=== PATIENT | male | born 1940 | race Caucasian/White ===

== ENCOUNTER 2018-07-14 02:51 | Observation (INO) | payer OTHER ==
[~2018-07-14] VITALS: Ht 175.3 cm; Wt 104.3 kg
[2018-07-14 03:21] LABS: BASOPHILS % (AUTO) 1.3 % (0.0-5.0); EOSINOPHILS % (AUTO) 2.5 % (0.0-8.0); HEMATOCRIT 43.3 % (42-54); LYMPHOCYTES % (AUTO) 37.7 % (21.0-51.0); MEAN CORPUSCULAR HEMOGLOBIN 30.5 pg (27.0-33.0); MEAN CORPUSCULAR HGB CONC 34.2 g/dL (32.0-36.0); MEAN CORPUSCULAR VOLUME 89.1 fL (79-99); MONOCYTES % (AUTO) 9.2 % (3.0-13.0); NEUTROPHILS % (AUTO) 49.3 % (40.0-77.0); NUCLEATED RED BLOOD CELLS 0.1 % (0.0-0.19); PLATELET COUNT (AUTO) 173 K/uL (130-400); RED BLOOD CELL COUNT(AUTO) 4.86 MIL/uL (4.50-6.20); RED CELL DISTRIBUTION WIDTH 13.3 % (11.0-15.5); WHITE BLOOD COUNT (AUTO) 6.1 K/uL (4.8-10.8)
[2018-07-14 03:30] LABS: CREATININE 1.3 mg/dL (0.5-1.5); POTASSIUM 4.2 mmol/L (3.5-5.1)
[2018-07-14 03:36] LABS: ALBUMIN 3.6 g/dL (3.5-5.0); BILIRUBIN,TOTAL 0.5 mg/dL (0.2-1.0)
[2018-07-14 03:46] LABS: INR 0.98 (0.85-1.15); PARTIAL THROMBOPLASTIN TIME 27.2 SEC (26.3-35.5); PROTHROMBIN TIME 10.3 SEC (9.6-11.6)
[2018-07-14] MEDS ORDERED: HYDROCODONE/ACETAMINOPHEN 5/325 MG TAB PO PRN (06:30)
[2018-07-14] MEDS ORDERED: ONDANSETRON HCL 4 MG/2 ML VIAL IVP PRN (06:30)
[2018-07-14] MEDS ORDERED: MORPHINE SULFATE 2 MG/ML 1ML SYG IVP PRN (06:30)
[2018-07-14] MEDS: SODIUM CHLORIDE 0.9% 1000ML 1,000 ML IV SCH ×2 (06:30→19:26)
[2018-07-14] MEDS ORDERED: LABETALOL HCL 5 MG/ML 20ML VIAL IV PRN (06:30)
[2018-07-14] MEDS ORDERED: ACETAMINOPHEN 325 MG TAB PO PRN (06:30)
[2018-07-14 07:55] VITALS: BP 153/86
[2018-07-14] MEDS ORDERED: LISI40TA4 PO (10:08)
[2018-07-14] MEDS ORDERED: ASPI-1012 PO (10:08)
[2018-07-14] MEDS ORDERED: CEPH500C2 PO (10:08)
[2018-07-14] MEDS: ATORVASTATIN CALCIUM 40 MG TABLET PO SCH (10:20)
[2018-07-14] MEDS: ASPIRIN 325 MG TABLET PO SCH (10:20)
[2018-07-14] MEDS: ENOXAPARIN SODIUM 40 MG/0.4 ML SYRINGE SQ SCH (10:20)
[2018-07-14] MEDS: PANTOPRAZOLE SODIUM 40 MG TABLET.DR PO SCH (10:20)
[2018-07-14 12:06] VITALS: BP 132/82
[2018-07-14 16:19] VITALS: BP 134/78
[2018-07-14 19:00] VITALS: BP 134/98
[2018-07-14 23:00] VITALS: BP 122/55
[2018-07-15 03:00] VITALS: BP 116/83
[2018-07-15 08:00] VITALS: BP 132/60
[2018-07-15] MEDS: SODIUM CHLORIDE 0.9% 1000ML 1,000 ML IV SCH ×2 (09:10→11:38)
[2018-07-15] MEDS: PANTOPRAZOLE SODIUM 40 MG TABLET.DR PO SCH ×2 (10:39→10:52)
[2018-07-15] MEDS: ATORVASTATIN CALCIUM 40 MG TABLET PO SCH ×2 (10:39→10:51)
[2018-07-15] MEDS: ASPIRIN 325 MG TABLET PO SCH ×2 (10:40→10:52)
[2018-07-15] MEDS: ENOXAPARIN SODIUM 40 MG/0.4 ML SYRINGE SQ SCH ×2 (10:40→10:52)
[2018-07-15 11:37] VITALS: BP 152/89
[2018-07-15 14:23] LABS: CHOLESTEROL 188 mg/dL (<200); HDL CHOLESTEROL 46 mg/dL (29-71); LDL DIRECT 136 mg/dL (0-99); TRIGLYCERIDES 105 mg/dL (30-200)
[2018-07-15 14:32] LABS: MAGNESIUM 2.1 mg/dL (1.80-2.40); PHOSPHORUS 3.2 mg/dL (2.5-4.9); THYROID STIMULATING HORMONE 4.13 uIU/mL (0.36-3.74)
[2018-07-15 16:00] VITALS: BP 125/68
[2018-07-15 19:00] VITALS: BP 186/81
[2018-07-15 22:20] VITALS: BP 139/98
[2018-07-16] VITALS: BP 123/60
[2018-07-16 04:00] VITALS: BP 123/67
[2018-07-16 05:04] LABS: BASOPHILS % (AUTO) 0.9 % (0.0-5.0); EOSINOPHILS % (AUTO) 2.6 % (0.0-8.0); HEMATOCRIT 42.1 % (42-54); LYMPHOCYTES % (AUTO) 30.5 % (21.0-51.0); MEAN CORPUSCULAR HEMOGLOBIN 30.6 pg (27.0-33.0); MEAN CORPUSCULAR VOLUME 90.1 fL (79-99); MONOCYTES % (AUTO) 9.3 % (3.0-13.0); NEUTROPHILS % (AUTO) 56.7 % (40.0-77.0); PLATELET COUNT (AUTO) 172 K/uL (130-400); RED BLOOD CELL COUNT(AUTO) 4.67 MIL/uL (4.50-6.20); RED CELL DISTRIBUTION WIDTH 13.3 % (11.0-15.5); WHITE BLOOD COUNT (AUTO) 5.7 K/uL (4.8-10.8)
[2018-07-16 05:26] LABS: HEMOGLOBIN A1C 5.5 % (4.0-6.0)
[2018-07-16 05:48] LABS: ALBUMIN 3.2 g/dL (3.5-5.0); BILIRUBIN,TOTAL 0.4 mg/dL (0.2-1.0); CREATININE 1.3 mg/dL (0.5-1.5); MAGNESIUM 1.9 mg/dL (1.80-2.40); PHOSPHORUS 3.2 mg/dL (2.5-4.9); POTASSIUM 4.4 mmol/L (3.5-5.1); THYROID STIMULATING HORMONE 5.97 uIU/mL (0.36-3.74); TOTAL PROTEIN, SERUM 6.3 g/dL (6.0-8.3)
[2018-07-16] MEDS ORDERED: LEVOTHYROXINE 25 MCG TABLET PO SCH (06:30)
[2018-07-16 07:00] VITALS: BP 175/87
[2018-07-16] MEDS ORDERED: LISINOPRIL 5 MG TABLET PO SCH ×2 (09:00)
[2018-07-16] MEDS: PANTOPRAZOLE SODIUM 40 MG TABLET.DR PO SCH (10:36)
[2018-07-16] MEDS: ATORVASTATIN CALCIUM 40 MG TABLET PO SCH (10:36)
[2018-07-16] MEDS: ASPIRIN 325 MG TABLET PO SCH (10:36)
[2018-07-16 11:00] VITALS: BP 132/68
[2018-07-16] MEDS ORDERED: CLOPIDOGREL BISULFATE 75 MG TAB PO SCH (11:00)
[2018-07-17] MEDS ORDERED: ASPIRIN 81MG TAB.CHEW PO SCH (09:00)
== END 2018-07-16 14:27 | disposition home or self-care (01) ==
LOC: EDH 02:51 → OBSVTOIN 05:31 → EDHIP 05:31 → INTOOBSV 05:31 → 3CH 07:50
PROVIDERS: ADMIT Internal Medicine Critical Care Medicine; ATTEND Internal Medicine Critical Care Medicine
DX: R42 Dizziness and giddiness (principal); G45.9 Transient cerebral ischemic attack, unspecified; H66.92 Otitis media, unspecified, left ear; E78.5 Hyperlipidemia, unspecified; H53.2 Diplopia; I10 Essential (primary) hypertension; I49.3 Ventricular premature depolarization; Z87.891 Personal history of nicotine dependence
CPT/HCPCS: 36415 ×3; 70450; 70544; 70547; 70551; 80053 ×2; 80061 ×2; 83036; 83735 ×2; 84100 ×2; 84439; 84443 ×2; 84480; 85025 ×2; 85610; 85730; 93005; 96360; 96361 ×3; 96372 ×2; 99285; G0378 ×57; J1650 ×2; J3490

== ENCOUNTER 2019-06-14 16:31 | Inpatient (IN) | payer OTHER ==
[~2019-06-14] VITALS: Ht 175.3 cm; Wt 111.2 kg
[~2019-06-14 16:31] MED LIST: LISI40TA4 PO
[2019-06-14] MEDS ORDERED: ASPIRIN 81MG TAB.CHEW ONE (16:56)
[2019-06-14] MEDS ORDERED: SODIUM CHLORIDE 0.9% 500ML 500 ML IV ONE (16:57)
[2019-06-14 17:09] LABS: BASOPHILS % (AUTO) 1.3 % (0.0-5.0); HEMATOCRIT 45.1 % (42-54); LYMPHOCYTES % (AUTO) 18.5 % (21.0-51.0); MEAN CORPUSCULAR HEMOGLOBIN 30.6 pg (27.0-33.0); MEAN CORPUSCULAR HGB CONC 34.5 g/dL (32.0-36.0); MEAN CORPUSCULAR VOLUME 88.5 fL (79-99); MONOCYTES % (AUTO) 10.3 % (3.0-13.0); NEUTROPHILS % (AUTO) 68.9 % (40.0-77.0); PLATELET COUNT (AUTO) 198 K/uL (130-400); RED BLOOD CELL COUNT(AUTO) 5.09 MIL/uL (4.50-6.20); RED CELL DISTRIBUTION WIDTH 13.1 % (11.0-15.5); WHITE BLOOD COUNT (AUTO) 9.4 K/uL (4.8-10.8)
[2019-06-14 17:20] LABS: CREATININE 1.2 mg/dL (0.5-1.5); POTASSIUM 4.6 mmol/L (3.5-5.1)
[2019-06-14 17:25] LABS: ALBUMIN 3.6 g/dL (3.5-5.0); BILIRUBIN,TOTAL 0.5 mg/dL (0.2-1.0); TOTAL PROTEIN, SERUM 6.8 g/dL (6.0-8.3)
[2019-06-14 17:29] LABS: B-TYPE NATRIURETIC PEPTIDE 61 pg/mL (0-100)
[2019-06-14] MEDS: NITROGLYCERIN 1GM/1 INCH PACKET TD SCH (18:00)
[2019-06-14 19:29] LABS: APPEARANCE,URINE Clear (CLEAR); BILIRUBIN,URINE Negative (NEGATIVE); COLOR,URINE Yellow (YELLOW); GLUCOSE, URINE (UA) Negative (NEGATIVE); KETONES,URINE Trace mg/dL (NEGATIVE); LEUKOCYTE ESTERASE ,URINE Moderate (NEGATIVE); NITRATE,URINE Negative (NEGATIVE); OCCULT BLOOD,URINE Negative (NEGATIVE); PH,URINE 6.5 (5.0-8.0); PROTEIN,URINE Negative (NEGATIVE); UROBILINOGEN,URINE 0.2 mg/dL (0.2-1.0)
[2019-06-14 19:35] LABS: BACTERIA,URINE Few /HPF (None Seen); RBC,URINE 0-1 /HPF (0-1)
[2019-06-14 19:36] LABS: MUCUS,URINE None Seen LPF (None Seen); SQUAMOUS EPITHELIAL CELL,UR 0-2 /HPF (0-2)
[2019-06-14] MEDS ORDERED: ADENOSINE 3 MG/ML 2ML VIAL IV ONE (20:02)
[2019-06-15] MEDS: NITROGLYCERIN 1GM/1 INCH PACKET TD SCH ×2 (06:00)
[2019-06-15] MEDS ORDERED: LISI-617 PO (08:14)
[2019-06-15] MEDS ORDERED: ATOR10 PO (08:14)
[2019-06-15] MEDS ORDERED: CLOP75TA32 PO (08:14)
[2019-06-15 08:57] VITALS: BP 138/70
[2019-06-15] MEDS: ENOXAPARIN SODIUM 40 MG/0.4 ML SYRINGE SQ SCH (09:14)
[2019-06-15 12:00] VITALS: BP 136/82
--- NOTE | 2019-06-15 13:08 | NUR ---
cm note met with patient resides at home with spouse, states is independent with ambulation and adls, no DME. no services at home. and dc plan is back to same home setting feels safe to return back home at dc. no dc needs. Addendum: 06/15/19 at 1310 by JOEL MARIE CM Amended: Links added.
[2019-06-15 15:17] VITALS: BP 142/89
[2019-06-15] MEDS ORDERED: IOHEXOL-350 75 ML VIAL IV ONE (15:29)
[2019-06-15] MEDS: LISINOPRIL 5 MG TABLET PO SCH (16:31)
[2019-06-15] MEDS: CLOPIDOGREL BISULFATE 75 MG TAB PO SCH (16:32)
--- NOTE | 2019-06-15 19:10 | NUR ---
Received bedside report ,pt is for stress test tomorrow.Pt informed regrding NPO post midnight.
[2019-06-15 19:56] VITALS: BP 140/86
[2019-06-15] MEDS: ATORVASTATIN CALCIUM 20 MG TABLET PO SCH (20:45)
[2019-06-15] MEDS: METOPROLOL TARTRATE 50 MG TAB PO SCH (20:45)
[2019-06-15 23:23] VITALS: BP 138/86
--- NOTE | 2019-06-16 | NUR ---
Pt. kept NPO at this time and pt demonstrated uderstanding.
[2019-06-16 03:33] VITALS: BP 107/64
[2019-06-16 05:21] LABS: HEMATOCRIT 40.8 % (42-54); MEAN CORPUSCULAR HEMOGLOBIN 30.9 pg (27.0-33.0); MEAN CORPUSCULAR HGB CONC 34.8 g/dL (32.0-36.0); PLATELET COUNT (AUTO) 199 K/uL (130-400); RED BLOOD CELL COUNT(AUTO) 4.59 MIL/uL (4.50-6.20); RED CELL DISTRIBUTION WIDTH 13.2 % (11.0-15.5)
[2019-06-16 05:32] LABS: CREATININE 1.2 mg/dL (0.5-1.5); MAGNESIUM 1.8 mg/dL (1.80-2.40); POTASSIUM 4.1 mmol/L (3.5-5.1)
[2019-06-16 07:00] VITALS: BP 136/93
[2019-06-16] MEDS ORDERED: REGADENOSON 0.4 MG/5 ML PF SYG IVP SCH (07:30)
[2019-06-16] MEDS: CLOPIDOGREL BISULFATE 75 MG TAB PO SCH (10:27)
[2019-06-16] MEDS: METOPROLOL TARTRATE 50 MG TAB PO SCH ×2 (10:27→20:57)
[2019-06-16] MEDS: LISINOPRIL 5 MG TABLET PO SCH (10:27)
[2019-06-16] MEDS: ENOXAPARIN SODIUM 40 MG/0.4 ML SYRINGE SQ SCH (10:28)
[2019-06-16 11:20] VITALS: BP 136/83
[2019-06-16 16:00] VITALS: BP 99/58
[2019-06-16 20:21] VITALS: BP 112/75
[2019-06-16] MEDS: ATORVASTATIN CALCIUM 20 MG TABLET PO SCH (20:55)
--- NOTE | 2019-06-16 21:00 | NUR ---
NETTE POLANCO NP called back and notified of pt.s status.He said to wait for dc order and prescription for metoprolol in am,pt aware.
[2019-06-16] MEDS ORDERED: METO50 PO (22:13)
[2019-06-16] MEDS ORDERED: ACETAMINOPHEN 325 MG TAB PO PRN (22:30)
[2019-06-16] MEDS ORDERED: TRAMADOL HCL 50 MG TABLET PO PRN (22:30)
[2019-06-16] MEDS ORDERED: POTASSIUM CHLORIDE 10% ELIXIR 20 MEQ/15 ML UDCUP PO PRN (22:30)
[2019-06-16] MEDS ORDERED: POTASSIUM CHLORIDE 20 MEQ ERTAB PO PRN (22:30)
[2019-06-16] MEDS ORDERED: TEMAZEPAM 15 MG CAPSULE PO PRN (22:30)
[2019-06-16] MEDS ORDERED: MAGNESIUM HYDROXIDE 30 ML/UDCUP PO PRN (22:30)
[2019-06-16] MEDS ORDERED: ONDANSETRON HCL 4 MG/2 ML VIAL IVP PRN (22:30)
[2019-06-16] MEDS ORDERED: MAGNESIUM SULFATE 1 GM in SODIUM CHLORIDE 0.9% 50 ML IV PRN (22:30)
[2019-06-16] MEDS ORDERED: POTASSIUM CHLORIDE 20MEQ/100ML 100 ML IV PRN (22:30)
[2019-06-16] MEDS ORDERED: LIDOCAINE HCL-MPF 1% 2ML VIAL IV PRN (22:30)
--- NOTE | 2019-06-17 00:35 | NUR ---
DID'NT WANT TO BE BOTHERED Pt sleepin,did'nt want to be bothered for Vital signs monitoring.
[2019-06-17 01:10] VITALS: BP 115/68
[2019-06-17 03:18] VITALS: BP 121/75
[2019-06-17 07:00] VITALS: BP 126/67
[2019-06-17] MEDS ORDERED: FAMOTIDINE 20MG TAB 20 MG TAB PO SCH (09:00)
[2019-06-17] MEDS: ENOXAPARIN SODIUM 40 MG/0.4 ML SYRINGE SQ SCH (09:00)
[2019-06-17] MEDS: METOPROLOL TARTRATE 50 MG TAB PO SCH (09:29)
[2019-06-17] MEDS: CLOPIDOGREL BISULFATE 75 MG TAB PO SCH (09:29)
[2019-06-17] MEDS: LISINOPRIL 5 MG TABLET PO SCH (09:29)
[2019-06-17 11:00] VITALS: BP 104/65
== END 2019-06-17 12:25 | disposition home or self-care (01) | DRG 310 ==
LOC: EDH 16:31 → OBSVTOIN 18:09 → EDHIP 18:09 → 3BH 20:14 → EDHIP 21:01 → 2DH 06-15 07:35
PROVIDERS: ADMIT Internal Medicine; ATTEND Internal Medicine
DX: I47.1 Supraventricular tachycardia (principal); E66.9 Obesity, unspecified; E78.5 Hyperlipidemia, unspecified; I10 Essential (primary) hypertension; I35.1 Nonrheumatic aortic (valve) insufficiency; Z79.02 Long term (current) use of antithrombotics/antiplatelets; Z86.73 Personal history of transient ischemic attack (TIA), and cerebral infarction without residual deficits; Z68.36 Body mass index [BMI] 36.0-36.9, adult
CPT/HCPCS: 36415; 71045; 71275; 78452; 80048; 80053; 81001; 83690; 83735; 83880; 84132; 84484; 85025; 85027; 93005; 93017; 93306; 93970; 96374; A9500; G0378; J0153; J1650; J2785; J7040; Q9967

== ENCOUNTER 2020-05-28 01:58 | Inpatient (IN) | payer OTHER ==
[~2020-05-28] VITALS: Ht 175.3 cm; Wt 97.8 kg
[~2020-05-28 01:58] MED LIST changes: +ATOR10 PO; +CLOP75TA32 PO; +LISI-617 PO; -LISI40TA4 PO
[2020-05-28] MEDS ORDERED: LACTATED RINGERS 1000ML 1,000 ML IV ONE (02:02)
[2020-05-28] MEDS ORDERED: CEFTRIAXONE SODIUM 2 GM VIAL ONE (02:02)
[2020-05-28] MEDS ORDERED: ACETAMINOPHEN 325 MG TAB ONE (02:02)
[2020-05-28 02:58] LABS: BASOPHILS % (AUTO) 0.3 % (0.0-5.0); EOSINOPHILS % (AUTO) 0.8 % (0.0-8.0); HEMATOCRIT 40.2 % (42-54); LYMPHOCYTES % (AUTO) 6.7 % (21.0-51.0); MEAN CORPUSCULAR HEMOGLOBIN 29.7 pg (27.0-33.0); MEAN CORPUSCULAR HGB CONC 35.1 g/dL (32.0-36.0); MEAN CORPUSCULAR VOLUME 84.6 fL (79-99); MONOCYTES % (AUTO) 4.4 % (3.0-13.0); NEUTROPHILS % (AUTO) 87.3 % (40.0-77.0); PLATELET COUNT (AUTO) 213 K/uL (130-400); RED BLOOD CELL COUNT(AUTO) 4.75 MIL/uL (4.50-6.20); WHITE BLOOD COUNT (AUTO) 6.1 K/uL (4.8-10.8)
[2020-05-28 03:08] LABS: ABG BASE EXCESS 0.7 mmol/L (-2.0-3.0); ABG HCO3 25.1 mmol/L (21.0-28.0); ABG OXYGEN SATURATION 93.4 % (95.0-99.0); ABG PCO2 39 mmHg (35-48)
[2020-05-28 03:14] LABS: CARBON DIOXIDE 30 mmol/L (21-32); CHLORIDE 97 mmol/L (101-111); GLOMERULAR FILTR. RATE CALC 77 mL/min (>60); GLUCOSE,RANDOM 141 mg/dL (70-105); POTASSIUM 3.7 mmol/L (3.5-5.1); SODIUM SERUM 131 mmol/L (136-145); UREA NITROGEN, BLOOD 16 mg/dL (7-18)
[2020-05-28 03:19] LABS: INR 1.54 (0.85-1.15); PARTIAL THROMBOPLASTIN TIME 56.5 SEC (26.3-35.5); PROTHROMBIN TIME 16.4 SEC (9.6-11.6)
[2020-05-28] MEDS ORDERED: ZINC SULFATE 220 CAPSULE ONE (03:22)
[2020-05-28] MEDS ORDERED: AZITHROMYCIN 500MG+NS 250ML 250 ML IV ONE (03:22)
[2020-05-28] MEDS ORDERED: DEXAMETHASONE SOD PHOSPHATE 10MG/ML 1ML VIAL ONE (03:22)
[2020-05-28] MEDS ORDERED: CEFTRIAXONE SODIUM 1 GM ONE (03:23)
[2020-05-28 03:38] LABS: ALANINE AMINOTRANSFERASE 71 U/L (12-78); ALBUMIN 2.5 g/dL (3.5-5.0); ASPARTATE AMINOTRANSFERASE 139 U/L (10-37); BILIRUBIN,TOTAL 0.7 mg/dL (0.2-1.0); MYOGLOBIN 267 ng/mL (10-92); TOTAL PROTEIN, SERUM 6.7 g/dL (6.0-8.3); TROPONIN I < 0.04 ng/mL (0.00-0.06)
[2020-05-28 03:47] LABS: CREATINE KINASE, TOTAL 1921 U/L (21-232)
[2020-05-28] MEDS ORDERED: IOHEXOL 350 MG/ML 100ML INFUS..BTL IV ONE (03:51)
[2020-05-28 04:46] LABS: APPEARANCE,URINE Clear (CLEAR); BILIRUBIN,URINE Negative (NEGATIVE); COLOR,URINE Yellow (YELLOW); GLUCOSE, URINE (UA) Negative (NEGATIVE); KETONES,URINE 15 mg/dL (NEGATIVE); LEUKOCYTE ESTERASE ,URINE Negative (NEGATIVE); NITRATE,URINE Negative (NEGATIVE); OCCULT BLOOD,URINE Small (NEGATIVE); PROTEIN,URINE POS 2+ mg/dL (NEGATIVE)
[2020-05-28 05:09] LABS: BACTERIA,URINE None Seen /HPF (None Seen); RBC,URINE 0-1 /HPF (0-1); SQUAMOUS EPITHELIAL CELL,UR Moderate /HPF (0-2); WBC,URINE 0-1 /HPF (0-1)
[2020-05-28 06:15] VITALS: BP 130/83
[2020-05-28] MEDS ORDERED: ONDANSETRON HCL 4 MG/2 ML VIAL IVP PRN (06:15)
[2020-05-28] MEDS ORDERED: AZITHROMYCIN 500MG+NS 250ML 250 ML IV SCH (06:15)
[2020-05-28] MEDS ORDERED: ONDANSETRON HCL 4 MG/2 ML VIAL IV PRN (06:15)
[2020-05-28] MEDS ORDERED: LACTULOSE 20 GM/30 ML UDCUP PO PRN (06:15)
[2020-05-28] MEDS ORDERED: ACETAMINOPHEN 325 MG TAB PO PRN (06:15)
[2020-05-28] MEDS ORDERED: CEFTRIAXONE SODIUM 1 GM IVP SCH (06:15)
[2020-05-28 07:11] LABS: HEMOGLOBIN A1C 5.9 % (4.0-6.0)
[2020-05-28] MEDS ORDERED: ERGOCALCIFEROL (VITAMIN D2) 50,000 UNIT CAPSULE PO SCH (07:34)
[2020-05-28] MEDS ORDERED: PHARMACY COMMUNICATION MISC SCH (07:45)
[2020-05-28 08:00] VITALS: BP 113/70
[2020-05-28] MEDS: ASCORBIC ACID 500 MG TAB PO SCH (09:00)
[2020-05-28] MEDS ORDERED: FAMOTIDINE 20MG TAB 20 MG TAB PO SCH (09:00)
[2020-05-28] MEDS: DEXAMETHASONE 4 MG TAB PO SCH (09:00)
[2020-05-28] MEDS: FAMOTIDINE 20MG TAB 20 MG TAB PO SCH ×2 (09:00→20:42)
[2020-05-28] MEDS: ZINC SULFATE 220 CAPSULE PO SCH (09:00)
[2020-05-28] MEDS: ENOXAPARIN SODIUM 100 MG/1 ML SQ SCH ×2 (09:01→20:46)
[2020-05-28 11:26] VITALS: BP 137/84
[2020-05-28] MEDS: LACTATED RINGERS 1000ML 1,000 ML IV SCH ×2 (11:59→20:48)
[2020-05-28] MEDS ORDERED: METO25TA6 PO (12:33)
[2020-05-28] MEDS ORDERED: OXCA150T27 PO (12:33)
[2020-05-28] MEDS ORDERED: PHARMACY COMMUNICATION***REMDESIVIR ORDER MISC SCH (13:45)
--- NOTE | 2020-05-28 14:11 | NUR ---
DCP CM spoke to pt discussed dc plans. Pt is independent prior to admission, lives at home with spouse and 23 grandchildren. Pt has a walker he hardly uses, and shower chair. Denies any other equipments/services. Feels safe to go back home, spouse and daughter able to assist with transportation and needs as necessary. Pt agreeable for any [facility] DME/HH/SNF if necessary, telephone consent obtained ABHIJIT, witnessed by Tabitha BHAKTA. Pt however verbalized as much as possible he prefers to go home and does not want to go to [facility]. DC plan to home vs w/HH or SNF. CM to continue to follow up. Addendum: 05/28/20 at 1415 by BRIANNA BAEZA LVN CM Amended: Links added.
[2020-05-28 16:00] VITALS: BP 125/72
[2020-05-28 19:49] VITALS: BP 128/80
[2020-05-28] MEDS: OXCARBAZEPINE 300 MG TAB PO SCH (20:43)
[2020-05-28] MEDS: ATORVASTATIN CALCIUM 20 MG TABLET PO SCH (20:44)
[2020-05-28] MEDS: CEFTRIAXONE SODIUM 1 GM IVP SCH (20:44)
[2020-05-28] MEDS: METOPROLOL TARTRATE 25 MG TAB PO SCH (20:45)
[2020-05-28 23:31] VITALS: BP 129/76
--- NOTE | 2020-05-29 03:00 | NUR ---
One unit of FFP completed with pt in stable condition. No s/s of transfusion reaction noted. Patient continued on 4L NC with POX between 92-97%. No acute respiratory distress at this time. Following POC.
[2020-05-29 04:00] VITALS: BP 128/81
[2020-05-29 07:10] LABS: BASOPHILS % (AUTO) 0.1 % (0.0-5.0); HEMATOCRIT 36.9 % (42-54); LYMPHOCYTES % (AUTO) 6.9 % (21.0-51.0); MEAN CORPUSCULAR HEMOGLOBIN 29.7 pg (27.0-33.0); MEAN CORPUSCULAR HGB CONC 34.4 g/dL (32.0-36.0); MEAN CORPUSCULAR VOLUME 86.2 fL (79-99); MONOCYTES % (AUTO) 4.5 % (3.0-13.0); NEUTROPHILS % (AUTO) 87.8 % (40.0-77.0); PLATELET COUNT (AUTO) 239 K/uL (130-400); RED BLOOD CELL COUNT(AUTO) 4.28 MIL/uL (4.50-6.20); RED CELL DISTRIBUTION WIDTH 12.2 % (11.0-15.5); WHITE BLOOD COUNT (AUTO) 7.6 K/uL (4.8-10.8)
[2020-05-29] MEDS: LACTATED RINGERS 1000ML 1,000 ML IV SCH ×2 (07:15→17:15)
[2020-05-29 07:35] LABS: ALBUMIN 2.2 g/dL (3.5-5.0); BILIRUBIN,TOTAL 0.4 mg/dL (0.2-1.0); CREATININE 0.9 mg/dL (0.5-1.5); CRP QUANTITATIVE 53.7 mg/L (0.00-9.0); TOTAL PROTEIN, SERUM 6.1 g/dL (6.0-8.3)
[2020-05-29 08:00] VITALS: BP 130/79
[2020-05-29] MEDS ORDERED: COMPOUND IV REFRIGERATED 1 EACH IVSOLN MISC PRN (08:00)
[2020-05-29] MEDS ORDERED: REMDESIVIR (EUA) 520 200 MG in SODIUM CHLORIDE 0.9% 250 ML IV SCH (09:00)
[2020-05-29] MEDS: AZITHROMYCIN 500MG+NS 250ML 250 ML IV SCH (09:26)
[2020-05-29] MEDS: CEFTRIAXONE SODIUM 1 GM IVP SCH ×2 (09:26→20:34)
[2020-05-29] MEDS: CLOPIDOGREL BISULFATE 75 MG TAB PO SCH (09:27)
[2020-05-29] MEDS: METOPROLOL TARTRATE 25 MG TAB PO SCH ×2 (09:27→20:32)
[2020-05-29] MEDS: ZINC SULFATE 220 CAPSULE PO SCH (09:27)
[2020-05-29] MEDS: ASCORBIC ACID 500 MG TAB PO SCH (09:27)
[2020-05-29] MEDS: FAMOTIDINE 20MG TAB 20 MG TAB PO SCH ×2 (09:27→20:34)
[2020-05-29] MEDS: DEXAMETHASONE 4 MG TAB PO SCH (09:28)
[2020-05-29] MEDS: OXCARBAZEPINE 300 MG TAB PO SCH (09:28)
[2020-05-29] MEDS: ENOXAPARIN SODIUM 100 MG/1 ML SQ SCH ×2 (09:30→20:34)
[2020-05-29 11:16] VITALS: BP 118/66
[2020-05-29 16:00] VITALS: BP 133/85
[2020-05-29 20:00] VITALS: BP 135/81
[2020-05-29] MEDS: ATORVASTATIN CALCIUM 20 MG TABLET PO SCH (20:32)
[2020-05-30] VITALS: BP 129/83
[2020-05-30] MEDS: LACTATED RINGERS 1000ML 1,000 ML IV SCH ×2 (01:30→02:33)
[2020-05-30 03:37] LABS: ABG BASE EXCESS 3.2 mmol/L (-2.0-3.0); ABG OXYGEN SATURATION 87.3 % (95.0-99.0); ABG PCO2 39 mmHg (35-48)
[2020-05-30 04:00] VITALS: BP 142/76
[2020-05-30] MEDS: AZITHROMYCIN 500MG+NS 250ML 250 ML IV SCH (05:11)
--- NOTE | 2020-05-30 05:15 | NUR ---
OXYGENATION Pt was placed on ventimask by RT, pt called out to nurse's station stating mask was too uncomfortable and tight. Explained to pt the importance of wearing mask. pt insists on taking mask off and wearing NC. O2 via NC placed on pt @5L.pt denies further needs. RT notified of change. will cont to monitor
[2020-05-30 06:14] LABS: BASOPHILS % (AUTO) 0.1 % (0.0-5.0); LYMPHOCYTES % (AUTO) 11.6 % (21.0-51.0); MEAN CORPUSCULAR HEMOGLOBIN 29.3 pg (27.0-33.0); MEAN CORPUSCULAR HGB CONC 33.8 g/dL (32.0-36.0); MEAN CORPUSCULAR VOLUME 86.7 fL (79-99); MONOCYTES % (AUTO) 3.6 % (3.0-13.0); NEUTROPHILS % (AUTO) 83.4 % (40.0-77.0); PLATELET COUNT (AUTO) 282 K/uL (130-400); RED CELL DISTRIBUTION WIDTH 12.2 % (11.0-15.5); WHITE BLOOD COUNT (AUTO) 9.6 K/uL (4.8-10.8)
[2020-05-30 06:35] LABS: ALBUMIN 2.3 g/dL (3.5-5.0); BILIRUBIN,TOTAL 0.5 mg/dL (0.2-1.0); CRP QUANTITATIVE 38.1 mg/L (0.00-9.0); MAGNESIUM 2.2 mg/dL (1.80-2.40); PHOSPHORUS 2.5 mg/dL (2.5-4.9); POTASSIUM 3.5 mmol/L (3.5-5.1); TOTAL PROTEIN, SERUM 6.2 g/dL (6.0-8.3)
[2020-05-30 08:00] VITALS: BP 135/70
[2020-05-30] MEDS: CEFTRIAXONE SODIUM 1 GM IVP SCH ×2 (10:24→20:15)
[2020-05-30] MEDS: DEXAMETHASONE 4 MG TAB PO SCH (10:24)
[2020-05-30] MEDS: REMDESIVIR (EUA) 520 100 MG in SODIUM CHLORIDE 0.9% 250 ML IV SCH (10:24)
[2020-05-30] MEDS: FAMOTIDINE 20MG TAB 20 MG TAB PO SCH ×2 (10:25→20:15)
[2020-05-30] MEDS: METOPROLOL TARTRATE 25 MG TAB PO SCH ×2 (10:25→20:15)
[2020-05-30] MEDS: CLOPIDOGREL BISULFATE 75 MG TAB PO SCH (10:25)
[2020-05-30] MEDS: ZINC SULFATE 220 CAPSULE PO SCH (10:25)
[2020-05-30] MEDS: ENOXAPARIN SODIUM 100 MG/1 ML SQ SCH ×2 (10:25→20:15)
[2020-05-30] MEDS: ASCORBIC ACID 500 MG TAB PO SCH (10:25)
[2020-05-30] MEDS: FUROSEMIDE 10 MG/ML 4ML VIAL IV SCH (10:27)
[2020-05-30 12:00] VITALS: BP 123/87
[2020-05-30] MEDS: DIAZEPAM 5 MG TABLET PO PRN (12:02)
[2020-05-30 16:00] VITALS: BP 133/86
[2020-05-30 19:50] VITALS: BP 156/83
[2020-05-30] MEDS: ATORVASTATIN CALCIUM 20 MG TABLET PO SCH (20:15)
[2020-05-31] VITALS (7 sets, daily range): BP systolic 132–171; BP diastolic 74–95
[2020-05-31] MEDS: AZITHROMYCIN 500MG+NS 250ML 250 ML IV SCH (05:45)
[2020-05-31 07:12] LABS: BASOPHILS % (AUTO) 0.2 % (0.0-5.0); HEMATOCRIT 40.2 % (42-54); LYMPHOCYTES % (AUTO) 9.7 % (21.0-51.0); MEAN CORPUSCULAR HEMOGLOBIN 29.1 pg (27.0-33.0); MEAN CORPUSCULAR HGB CONC 33.8 g/dL (32.0-36.0); MEAN CORPUSCULAR VOLUME 86.1 fL (79-99); MONOCYTES % (AUTO) 3.4 % (3.0-13.0); NEUTROPHILS % (AUTO) 85.1 % (40.0-77.0); PLATELET COUNT (AUTO) 296 K/uL (130-400); RED BLOOD CELL COUNT(AUTO) 4.67 MIL/uL (4.50-6.20); WHITE BLOOD COUNT (AUTO) 9.2 K/uL (4.8-10.8)
[2020-05-31 07:33] LABS: ALBUMIN 2.3 g/dL (3.5-5.0); BILIRUBIN,DIRECT 0.2 mg/dL (0.0-0.3); BILIRUBIN,TOTAL 0.6 mg/dL (0.2-1.0); CREATININE 0.9 mg/dL (0.5-1.5); MAGNESIUM 2.1 mg/dL (1.80-2.40); PHOSPHORUS 3.1 mg/dL (2.5-4.9); POTASSIUM 3.9 mmol/L (3.5-5.1); TOTAL PROTEIN, SERUM 6.4 g/dL (6.0-8.3)
[2020-05-31] MEDS ORDERED: HYDRALAZINE HCL 20 MG/ML VIAL IV PRN (08:30)
[2020-05-31] MEDS ORDERED: LABETALOL 20 MG/4 ML DISP.SYRIN IV PRN (08:30)
[2020-05-31] MEDS: DIAZEPAM 5 MG TABLET PO PRN (08:37)
--- NOTE | 2020-05-31 08:38 | NUR ---
FEELS ANXIOUS, STATES HE NEEDS AN ANXIETY PILL LIKE THE ONE FROM YESTERDAY. INFORMED CHET LAMB. MEDICATED WITH VALIUM 5MG PO.
[2020-05-31] MEDS: CEFTRIAXONE SODIUM 1 GM IVP SCH ×2 (09:20→20:13)
[2020-05-31] MEDS: METOPROLOL TARTRATE 25 MG TAB PO SCH ×2 (09:21→20:13)
[2020-05-31] MEDS: ZINC SULFATE 220 CAPSULE PO SCH (09:21)
[2020-05-31] MEDS: ASCORBIC ACID 500 MG TAB PO SCH (09:21)
[2020-05-31] MEDS: FAMOTIDINE 20MG TAB 20 MG TAB PO SCH ×2 (09:21→20:13)
[2020-05-31] MEDS: ENOXAPARIN SODIUM 100 MG/1 ML SQ SCH ×2 (09:21→20:14)
[2020-05-31] MEDS: DEXAMETHASONE 4 MG TAB PO SCH (09:22)
[2020-05-31] MEDS: CLOPIDOGREL BISULFATE 75 MG TAB PO SCH (09:23)
[2020-05-31] MEDS: REMDESIVIR (EUA) 520 100 MG in SODIUM CHLORIDE 0.9% 250 ML IV SCH (09:24)
[2020-05-31] MEDS: FUROSEMIDE 10 MG/ML 4ML VIAL IV SCH (09:48)
[2020-05-31] MEDS: QUETIAPINE FUMARATE 25 MG TAB PO PRN (15:00)
[2020-05-31] MEDS: ATORVASTATIN CALCIUM 20 MG TABLET PO SCH (20:13)
[2020-05-31] MEDS ORDERED: SODIUM CHLORIDE 0.9% 250 ML IV ONE (22:36)
[2020-06-01 04:15] VITALS: BP 161/91
[2020-06-01] MEDS: AZITHROMYCIN 500MG+NS 250ML 250 ML IV SCH (05:50)
[2020-06-01 05:56] LABS: ALBUMIN 2.3 g/dL (3.5-5.0); BILIRUBIN,TOTAL 0.6 mg/dL (0.2-1.0); MAGNESIUM 3.1 mg/dL (1.80-2.40); PHOSPHORUS 3.4 mg/dL (2.5-4.9); POTASSIUM 3.7 mmol/L (3.5-5.1); TOTAL PROTEIN, SERUM 6.4 g/dL (6.0-8.3)
[2020-06-01] MEDS: QUETIAPINE FUMARATE 25 MG TAB PO PRN ×3 (05:56→21:42)
[2020-06-01 07:30] VITALS: BP 168/92
[2020-06-01] MEDS: LACTATED RINGERS 1000ML 1,000 ML IV SCH (08:34)
[2020-06-01] MEDS: ENOXAPARIN SODIUM 100 MG/1 ML SQ SCH ×2 (09:00→20:32)
[2020-06-01] MEDS: REMDESIVIR (EUA) 520 100 MG in SODIUM CHLORIDE 0.9% 250 ML IV SCH (09:10)
[2020-06-01] MEDS: CEFTRIAXONE SODIUM 1 GM IVP SCH ×2 (09:11→20:31)
[2020-06-01] MEDS: DEXAMETHASONE 4 MG TAB PO SCH (09:11)
[2020-06-01] MEDS: ZINC SULFATE 220 CAPSULE PO SCH (09:12)
[2020-06-01] MEDS: FAMOTIDINE 20MG TAB 20 MG TAB PO SCH ×2 (09:12→20:31)
[2020-06-01] MEDS: METOPROLOL TARTRATE 25 MG TAB PO SCH ×2 (09:12→20:31)
[2020-06-01] MEDS: ASCORBIC ACID 500 MG TAB PO SCH (09:12)
[2020-06-01] MEDS: CLOPIDOGREL BISULFATE 75 MG TAB PO SCH (09:12)
[2020-06-01 11:00] VITALS: BP 114/68
[2020-06-01] MEDS: FUROSEMIDE 10 MG/ML 4ML VIAL IV SCH (11:43)
[2020-06-01 16:00] VITALS: BP 117/71
[2020-06-01 19:30] VITALS: BP 126/79
[2020-06-01] MEDS: ATORVASTATIN CALCIUM 20 MG TABLET PO SCH (20:31)
[2020-06-01 23:52] VITALS: BP 130/82
[2020-06-02 04:00] VITALS: BP 129/84
[2020-06-02] MEDS: LACTATED RINGERS 1000ML 1,000 ML IV SCH ×4 (04:34→23:34)
[2020-06-02] MEDS: AZITHROMYCIN 500MG+NS 250ML 250 ML IV SCH (05:34)
[2020-06-02] MEDS: CEFTRIAXONE SODIUM 1 GM IVP SCH ×2 (08:16→19:57)
[2020-06-02] MEDS: QUETIAPINE FUMARATE 25 MG TAB PO PRN ×2 (08:16→19:57)
[2020-06-02] MEDS: ASCORBIC ACID 500 MG TAB PO SCH (08:16)
[2020-06-02] MEDS: DEXAMETHASONE 4 MG TAB PO SCH (08:16)
[2020-06-02] MEDS: GUAIFENESIN-DM 200/20 MG 10 ML PO PRN ×2 (08:16→19:57)
[2020-06-02] MEDS: METOPROLOL TARTRATE 25 MG TAB PO SCH ×2 (08:16→19:57)
[2020-06-02] MEDS: CLOPIDOGREL BISULFATE 75 MG TAB PO SCH (08:16)
[2020-06-02] MEDS: BENZONATATE 100 MG CAPSULE PO PRN ×2 (08:16→19:57)
[2020-06-02] MEDS: FAMOTIDINE 20MG TAB 20 MG TAB PO SCH ×2 (08:16→19:57)
[2020-06-02] MEDS: ENOXAPARIN SODIUM 100 MG/1 ML SQ SCH ×2 (08:17→19:58)
[2020-06-02] MEDS: ZINC SULFATE 220 CAPSULE PO SCH (08:17)
[2020-06-02] MEDS: REMDESIVIR (EUA) 520 100 MG in SODIUM CHLORIDE 0.9% 250 ML IV SCH (08:18)
[2020-06-02] MEDS: FUROSEMIDE 10 MG/ML 4ML VIAL IV SCH (08:18)
[2020-06-02 08:45] VITALS: BP 141/83
[2020-06-02 11:19] VITALS: BP 146/95
[2020-06-02 16:07] VITALS: BP 115/75
[2020-06-02] MEDS: ATORVASTATIN CALCIUM 20 MG TABLET PO SCH (19:57)
[2020-06-02 20:00] VITALS: BP 126/75
--- NOTE | 2020-06-02 20:00 | NUR ---
MEDS SHIFT ASSESSMENT DONE, PLEASE REFER TO CHART. DUE MEDS ADMINISTERED, TOLERATED WELL. CALL LIGHT WITHIN REACH. WILL MONITOR PT. Addendum: 06/02/20 at 2103 by HARSHAL ANDINO RN RN Amended: Links added.
--- NOTE | 2020-06-02 22:00 | NUR ---
ROUNDS PT RESTING WELL. NO DISTRESS NOTED. NO CONCERNS VERBALIZED. KEPT RESTED AND COMFORTABLE. CALL LIGHT WITHIN REACH. WILL MONITOR PT.
[2020-06-02 23:42] VITALS: BP 107/74
[2020-06-03] MEDS: GUAIFENESIN-DM 200/20 MG 10 ML PO PRN ×2 (00:03→04:12)
--- NOTE | 2020-06-03 02:00 | NUR ---
ROUNDS PT RESTING WELL, FAIRLY ASLEEP. NO DISTRESS NOTED. KEPT UNDISTURBED FOR NOW. WILL CONTINUE TO MONITOR. CALL LIGHT WITHIN REACH.
--- NOTE | 2020-06-03 03:51 | NUR ---
RT PT'S O2 SATS ON PULSE OXIMETER=87-88%. PT IS ASYMPTOMATIC, NO NOTED DISTRESS. NO COMPLAINTS VERBALIZED. V/S MONITORED AND O2 SATS=90-91% ON V/S MACHINE. JANISRT, CALLED TO RE-ASSESS AND FIX PULSE OXIMETER. PT WAS PLACED ON 50% VENTI MASK AND PULSE OXIMETER FIXED WITH O2 SATS=86%. WILL RE-ASSESS PT.
[2020-06-03 04:00] VITALS: BP 141/77
[2020-06-03] MEDS: AZITHROMYCIN 500MG+NS 250ML 250 ML IV SCH (04:12)
[2020-06-03] MEDS: BENZONATATE 100 MG CAPSULE PO PRN (04:12)
[2020-06-03 04:38] LABS: HEMATOCRIT 37.4 % (42-54); MEAN CORPUSCULAR HEMOGLOBIN 29.3 pg (27.0-33.0); MEAN CORPUSCULAR VOLUME 86.4 fL (79-99); RED BLOOD CELL COUNT(AUTO) 4.33 MIL/uL (4.50-6.20); RED CELL DISTRIBUTION WIDTH 12.6 % (11.0-15.5); WHITE BLOOD COUNT (AUTO) 8.2 K/uL (4.8-10.8)
[2020-06-03 05:20] LABS: POTASSIUM 3.6 mmol/L (3.5-5.1)
--- NOTE | 2020-06-03 05:50 | NUR ---
RE-ASSESS MEDICAL DERMATOLOGIST IN TO DO X-RAY AT BEDSIDE. O2 SAT MAINTAINING AT 91-92 % ON 50% VENTI MASK. NO CONCERNS VERBALIZED BY PT. FOR MORE CARE.
[2020-06-03 09:06] VITALS: BP 124/64
[2020-06-03] MEDS: ASCORBIC ACID 500 MG TAB PO SCH (09:25)
[2020-06-03] MEDS: CLOPIDOGREL BISULFATE 75 MG TAB PO SCH (09:26)
[2020-06-03] MEDS: DEXAMETHASONE 4 MG TAB PO SCH (09:26)
[2020-06-03] MEDS: METOPROLOL TARTRATE 25 MG TAB PO SCH ×2 (09:26→21:47)
[2020-06-03] MEDS: QUETIAPINE FUMARATE 25 MG TAB PO PRN ×2 (09:26→21:47)
[2020-06-03] MEDS: ZINC SULFATE 220 CAPSULE PO SCH (09:27)
[2020-06-03] MEDS: CEFTRIAXONE SODIUM 1 GM IVP SCH ×2 (09:27→21:46)
[2020-06-03] MEDS: ENOXAPARIN SODIUM 100 MG/1 ML SQ SCH ×2 (09:27→21:46)
[2020-06-03] MEDS: FAMOTIDINE 20MG TAB 20 MG TAB PO SCH ×2 (09:28→21:46)
[2020-06-03 13:04] VITALS: BP 130/67
[2020-06-03 16:33] VITALS: BP 105/64
[2020-06-03 20:00] VITALS: BP 109/62
[2020-06-03] MEDS: ATORVASTATIN CALCIUM 20 MG TABLET PO SCH (21:47)
[2020-06-03 23:37] VITALS: BP 101/63
[2020-06-04 04:00] VITALS: BP 125/70
[2020-06-04 04:25] LABS: ABG BASE EXCESS 4.3 mmol/L (-2.0-3.0); ABG HCO3 28.3 mmol/L (21.0-28.0); ABG OXYGEN SATURATION 95.5 % (95.0-99.0); ABG PCO2 40 mmHg (35-48)
[2020-06-04 05:06] LABS: BASOPHILS % (AUTO) 0.1 % (0.0-5.0); LYMPHOCYTES % (AUTO) 8.8 % (21.0-51.0); MEAN CORPUSCULAR HEMOGLOBIN 29.3 pg (27.0-33.0); MEAN CORPUSCULAR HGB CONC 33.1 g/dL (32.0-36.0); MEAN CORPUSCULAR VOLUME 88.4 fL (79-99); MONOCYTES % (AUTO) 3.7 % (3.0-13.0); NEUTROPHILS % (AUTO) 84.6 % (40.0-77.0); PLATELET COUNT (AUTO) 315 K/uL (130-400); RED BLOOD CELL COUNT(AUTO) 4.41 MIL/uL (4.50-6.20); RED CELL DISTRIBUTION WIDTH 12.5 % (11.0-15.5); WHITE BLOOD COUNT (AUTO) 7.1 K/uL (4.8-10.8)
[2020-06-04 05:29] LABS: BILIRUBIN,DIRECT 0.2 mg/dL (0.0-0.3); BILIRUBIN,TOTAL 0.5 mg/dL (0.2-1.0); MAGNESIUM 2.4 mg/dL (1.80-2.40); PHOSPHORUS 3.8 mg/dL (2.5-4.9); POTASSIUM 4.1 mmol/L (3.5-5.1); TOTAL PROTEIN, SERUM 6.2 g/dL (6.0-8.3)
[2020-06-04] MEDS: AZITHROMYCIN 500MG+NS 250ML 250 ML IV SCH (06:11)
[2020-06-04 08:00] VITALS: BP 160/91
[2020-06-04] MEDS: FAMOTIDINE 20MG TAB 20 MG TAB PO SCH ×2 (10:33→20:27)
[2020-06-04] MEDS: ZINC SULFATE 220 CAPSULE PO SCH (10:34)
[2020-06-04] MEDS: ASCORBIC ACID 500 MG TAB PO SCH (10:34)
[2020-06-04] MEDS: DEXAMETHASONE 4 MG TAB PO SCH (10:34)
[2020-06-04] MEDS: CEFTRIAXONE SODIUM 1 GM IVP SCH ×2 (10:34→20:27)
[2020-06-04] MEDS: METOPROLOL TARTRATE 25 MG TAB PO SCH ×2 (10:34→20:29)
[2020-06-04] MEDS: CLOPIDOGREL BISULFATE 75 MG TAB PO SCH (10:34)
[2020-06-04] MEDS: ENOXAPARIN SODIUM 100 MG/1 ML SQ SCH ×2 (10:35→20:26)
[2020-06-04] MEDS: BENZONATATE 100 MG CAPSULE PO SCH ×3 (10:38→23:59)
[2020-06-04] MEDS: GUAIFENESIN-DM 200/20 MG 10 ML PO SCH ×5 (10:38→23:59)
[2020-06-04] MEDS: QUETIAPINE FUMARATE 25 MG TAB PO SCH ×3 (10:38→21:02)
[2020-06-04 12:00] VITALS: BP 128/73
[2020-06-04 16:00] VITALS: BP 119/72
--- NOTE | 2020-06-04 16:56 | NUR ---
RDSCREEN - LOS X 7 Pt admitted with Positive COVID-19. Pt History of Obesity, JEANETH, HTN. Heart Healthy diet order in place. Good PO intake. No report of GI distress. Vitamin C, Zinc in place. Monitored labs: BG 112, Alb 2.0, TCK 273. Recommend continue diet order Recommend 60mL ProMod BID Recommend 2000-2200mL Free H2O for hydration RD to continue to monitor. Please notify as additional nutrition concerns arise. Thank you.
[2020-06-04 20:00] VITALS: BP 116/66
[2020-06-04] MEDS: ATORVASTATIN CALCIUM 20 MG TABLET PO SCH (20:27)
[2020-06-05] VITALS (7 sets, daily range): BP systolic 97–124; BP diastolic 44–68
[2020-06-05] MEDS: GUAIFENESIN-DM 200/20 MG 10 ML PO SCH ×6 (04:00→23:15)
[2020-06-05] MEDS: AZITHROMYCIN 500MG+NS 250ML 250 ML IV SCH (06:22)
[2020-06-05] MEDS: QUETIAPINE FUMARATE 25 MG TAB PO SCH ×3 (06:22→21:01)
[2020-06-05 07:38] LABS: BASOPHILS % (AUTO) 0.2 % (0.0-5.0); EOSINOPHILS % (AUTO) 0.1 % (0.0-8.0); HEMATOCRIT 41.7 % (42-54); LYMPHOCYTES % (AUTO) 8.1 % (21.0-51.0); MEAN CORPUSCULAR HEMOGLOBIN 29.4 pg (27.0-33.0); MEAN CORPUSCULAR HGB CONC 32.6 g/dL (32.0-36.0); MEAN CORPUSCULAR VOLUME 90.1 fL (79-99); MONOCYTES % (AUTO) 3.1 % (3.0-13.0); NEUTROPHILS % (AUTO) 86.6 % (40.0-77.0); PLATELET COUNT (AUTO) 324 K/uL (130-400); RED BLOOD CELL COUNT(AUTO) 4.63 MIL/uL (4.50-6.20); RED CELL DISTRIBUTION WIDTH 12.7 % (11.0-15.5); WHITE BLOOD COUNT (AUTO) 8.4 K/uL (4.8-10.8)
[2020-06-05 08:06] LABS: MAGNESIUM 2.5 mg/dL (1.80-2.40)
[2020-06-05] MEDS ORDERED: FUROSEMIDE 10 MG/ML 2ML VIAL IV SCH (09:00)
[2020-06-05] MEDS: ASCORBIC ACID 500 MG TAB PO SCH (09:18)
[2020-06-05] MEDS: FAMOTIDINE 20MG TAB 20 MG TAB PO SCH ×2 (09:19→20:50)
[2020-06-05] MEDS: CLOPIDOGREL BISULFATE 75 MG TAB PO SCH (09:19)
[2020-06-05] MEDS: BENZONATATE 100 MG CAPSULE PO SCH ×4 (09:19→23:15)
[2020-06-05] MEDS: ZINC SULFATE 220 CAPSULE PO SCH (09:19)
[2020-06-05] MEDS: METOPROLOL TARTRATE 25 MG TAB PO SCH ×2 (09:20→14:29)
[2020-06-05] MEDS: DEXAMETHASONE 4 MG TAB PO SCH (09:22)
[2020-06-05] MEDS: ENOXAPARIN SODIUM 100 MG/1 ML SQ SCH ×2 (09:24→20:51)
--- NOTE | 2020-06-05 14:34 | NUR ---
Lopressor 12.5mg 2100 dose held this day and Lasix changed to 10mg IV daily.
[2020-06-05] MEDS: FUROSEMIDE 10 MG/ML 2ML VIAL IV SCH (15:33)
[2020-06-05] MEDS: ATORVASTATIN CALCIUM 20 MG TABLET PO SCH (20:51)
[2020-06-06 04:11] VITALS: BP 118/65
[2020-06-06] MEDS: QUETIAPINE FUMARATE 25 MG TAB PO SCH ×3 (05:26→21:04)
[2020-06-06] MEDS: GUAIFENESIN-DM 200/20 MG 10 ML PO SCH ×6 (05:27→23:28)
[2020-06-06 06:39] VITALS: BP 139/71
[2020-06-06] MEDS: BENZONATATE 100 MG CAPSULE PO SCH ×3 (09:17→23:28)
[2020-06-06] MEDS: DEXAMETHASONE 4 MG TAB PO SCH (09:17)
[2020-06-06] MEDS: CLOPIDOGREL BISULFATE 75 MG TAB PO SCH (09:18)
[2020-06-06] MEDS: METOPROLOL TARTRATE 25 MG TAB PO SCH ×2 (09:18→20:52)
[2020-06-06] MEDS: ASCORBIC ACID 500 MG TAB PO SCH (09:18)
[2020-06-06] MEDS: ZINC SULFATE 220 CAPSULE PO SCH (09:18)
[2020-06-06] MEDS: FAMOTIDINE 20MG TAB 20 MG TAB PO SCH ×2 (09:18→20:51)
[2020-06-06] MEDS: FUROSEMIDE 10 MG/ML 2ML VIAL IV SCH ×2 (09:19→20:53)
[2020-06-06] MEDS: ENOXAPARIN SODIUM 100 MG/1 ML SQ SCH ×2 (09:20→20:51)
[2020-06-06 11:00] VITALS: BP 98/61
[2020-06-06 16:00] VITALS: BP 91/51
[2020-06-06 19:38] VITALS: BP 111/63
[2020-06-06] MEDS: ATORVASTATIN CALCIUM 20 MG TABLET PO SCH (20:53)
[2020-06-06 23:52] VITALS: BP 114/65
[2020-06-07 04:32] VITALS: BP 103/64
[2020-06-07] MEDS: GUAIFENESIN-DM 200/20 MG 10 ML PO SCH ×5 (04:48→19:53)
[2020-06-07] MEDS: QUETIAPINE FUMARATE 25 MG TAB PO SCH ×3 (05:10→21:19)
[2020-06-07 06:13] LABS: CREATININE 1.5 mg/dL (0.5-1.5); MAGNESIUM 2.3 mg/dL (1.80-2.40); POTASSIUM 3.9 mmol/L (3.5-5.1)
[2020-06-07 06:22] VITALS: BP 107/57
[2020-06-07 07:42] LABS: ABG BASE EXCESS 8.7 mmol/L (-2.0-3.0); ABG HCO3 34.2 mmol/L (21.0-28.0); ABG OXYGEN SATURATION 96.2 % (95.0-99.0); ABG PCO2 50 mmHg (35-48)
[2020-06-07] MEDS: BENZONATATE 100 MG CAPSULE PO SCH ×2 (08:35→16:28)
[2020-06-07] MEDS: ASCORBIC ACID 500 MG TAB PO SCH (08:38)
[2020-06-07] MEDS: FAMOTIDINE 20MG TAB 20 MG TAB PO SCH ×2 (08:38→21:19)
[2020-06-07] MEDS: ZINC SULFATE 220 CAPSULE PO SCH (08:38)
[2020-06-07] MEDS: METOPROLOL TARTRATE 25 MG TAB PO SCH ×2 (08:38→21:20)
[2020-06-07] MEDS: CLOPIDOGREL BISULFATE 75 MG TAB PO SCH (08:38)
[2020-06-07] MEDS: DEXAMETHASONE 4 MG TAB PO SCH (08:39)
[2020-06-07] MEDS: ENOXAPARIN SODIUM 100 MG/1 ML SQ SCH ×2 (08:40→21:21)
[2020-06-07] MEDS: FUROSEMIDE 10 MG/ML 2ML VIAL IV SCH ×2 (08:40→21:19)
[2020-06-07 12:15] VITALS: BP 119/65
[2020-06-07 16:00] VITALS: BP 117/68
[2020-06-07] MEDS: ATORVASTATIN CALCIUM 20 MG TABLET PO SCH (21:19)
[2020-06-07 21:25] VITALS: BP 103/67
[2020-06-08 00:24] VITALS: BP 94/63
[2020-06-08] MEDS: BENZONATATE 100 MG CAPSULE PO SCH ×4 (00:48→23:11)
[2020-06-08] MEDS: QUETIAPINE FUMARATE 25 MG TAB PO SCH ×3 (05:04→20:56)
[2020-06-08] MEDS: GUAIFENESIN-DM 200/20 MG 10 ML PO SCH ×7 (05:04→23:12)
[2020-06-08 05:42] LABS: CREATININE 1.2 mg/dL (0.5-1.5); MAGNESIUM 2.2 mg/dL (1.80-2.40); POTASSIUM 4.2 mmol/L (3.5-5.1)
[2020-06-08 05:53] VITALS: BP 115/74
[2020-06-08 07:00] VITALS: BP 96/54
[2020-06-08] MEDS: METOPROLOL TARTRATE 25 MG TAB PO SCH ×2 (09:00→20:51)
[2020-06-08] MEDS: DEXAMETHASONE 4 MG TAB PO SCH (09:38)
[2020-06-08] MEDS: FAMOTIDINE 20MG TAB 20 MG TAB PO SCH ×2 (09:39→20:50)
[2020-06-08] MEDS: ZINC SULFATE 220 CAPSULE PO SCH (09:39)
[2020-06-08] MEDS: ENOXAPARIN SODIUM 100 MG/1 ML SQ SCH ×2 (09:39→20:51)
[2020-06-08] MEDS: ASCORBIC ACID 500 MG TAB PO SCH (09:40)
[2020-06-08] MEDS: CLOPIDOGREL BISULFATE 75 MG TAB PO SCH (09:40)
--- NOTE | 2020-06-08 09:41 | NUR ---
Jenni held. Blood Pressure 96/54. Will continue to monitor.
[2020-06-08 11:00] VITALS: BP 114/69
[2020-06-08 16:00] VITALS: BP 110/66
[2020-06-08] MEDS: ATORVASTATIN CALCIUM 20 MG TABLET PO SCH (20:50)
[2020-06-08 21:05] VITALS: BP 114/76
[2020-06-09 01:10] VITALS: BP 96/65
[2020-06-09 04:00] LABS: ABG BASE EXCESS 6.7 mmol/L (-2.0-3.0); ABG HCO3 32.1 mmol/L (21.0-28.0); ABG OXYGEN SATURATION 95.7 % (95.0-99.0); ABG PCO2 49 mmHg (35-48)
[2020-06-09] MEDS: GUAIFENESIN-DM 200/20 MG 10 ML PO SCH ×6 (04:00→23:00)
[2020-06-09 04:34] VITALS: BP 109/72
[2020-06-09 05:54] LABS: BASOPHILS % (AUTO) 0.1 % (0.0-5.0); HEMATOCRIT 41.9 % (42-54); MEAN CORPUSCULAR HEMOGLOBIN 28.9 pg (27.0-33.0); MEAN CORPUSCULAR HGB CONC 32.5 g/dL (32.0-36.0); MEAN CORPUSCULAR VOLUME 89.1 fL (79-99); MONOCYTES % (AUTO) 5.5 % (3.0-13.0); NEUTROPHILS % (AUTO) 82.6 % (40.0-77.0); PLATELET COUNT (AUTO) 298 K/uL (130-400); RED CELL DISTRIBUTION WIDTH 12.6 % (11.0-15.5); WHITE BLOOD COUNT (AUTO) 7.7 K/uL (4.8-10.8)
[2020-06-09] MEDS: QUETIAPINE FUMARATE 25 MG TAB PO SCH ×3 (06:00→21:55)
[2020-06-09 06:23] LABS: ALBUMIN 2.1 g/dL (3.5-5.0); BILIRUBIN,TOTAL 0.6 mg/dL (0.2-1.0); CREATININE 0.9 mg/dL (0.5-1.5); MAGNESIUM 2.3 mg/dL (1.80-2.40); PHOSPHORUS 3.5 mg/dL (2.5-4.9); TOTAL PROTEIN, SERUM 6.7 g/dL (6.0-8.3)
[2020-06-09 10:00] VITALS: BP 122/79
[2020-06-09] MEDS: ASCORBIC ACID 500 MG TAB PO SCH (10:02)
[2020-06-09] MEDS: CLOPIDOGREL BISULFATE 75 MG TAB PO SCH (10:02)
[2020-06-09] MEDS: BENZONATATE 100 MG CAPSULE PO SCH ×2 (10:02→18:59)
[2020-06-09] MEDS: FAMOTIDINE 20MG TAB 20 MG TAB PO SCH ×2 (10:02→21:55)
[2020-06-09] MEDS: DEXAMETHASONE 4 MG TAB PO SCH (10:03)
[2020-06-09] MEDS: ZINC SULFATE 220 CAPSULE PO SCH (10:03)
[2020-06-09] MEDS: METOPROLOL TARTRATE 25 MG TAB PO SCH ×2 (10:03→21:55)
[2020-06-09] MEDS: ENOXAPARIN SODIUM 100 MG/1 ML SQ SCH ×2 (10:04→21:56)
[2020-06-09 13:09] VITALS: BP 123/71
--- NOTE | 2020-06-09 15:08 | NUR ---
chart reviewed, anticipate dc home with o2 when sats improve- goal 4 lnc transferred to second floor, report to CM Addendum: 06/09/20 at 1510 by OLYA ALVARES RN CM Amended: Links added.
[2020-06-09 19:00] VITALS: BP 121/73
[2020-06-09 19:37] VITALS: BP 124/67
[2020-06-09] MEDS: ATORVASTATIN CALCIUM 20 MG TABLET PO SCH (21:54)
[2020-06-10] VITALS: BP 112/66
[2020-06-10 03:31] LABS: ABG BASE EXCESS 6.1 mmol/L (-2.0-3.0); ABG HCO3 31.6 mmol/L (21.0-28.0); ABG PCO2 48 mmHg (35-48)
[2020-06-10 04:00] VITALS: BP 103/57
[2020-06-10] MEDS: GUAIFENESIN-DM 200/20 MG 10 ML PO SCH ×6 (04:00→23:57)
[2020-06-10 05:14] LABS: HEMATOCRIT 39.2 % (42-54); LYMPHOCYTES % (AUTO) 9.3 % (21.0-51.0); MEAN CORPUSCULAR HEMOGLOBIN 29.3 pg (27.0-33.0); MEAN CORPUSCULAR HGB CONC 32.9 g/dL (32.0-36.0); MEAN CORPUSCULAR VOLUME 89.1 fL (79-99); MONOCYTES % (AUTO) 5.6 % (3.0-13.0); NEUTROPHILS % (AUTO) 84.4 % (40.0-77.0); PLATELET COUNT (AUTO) 257 K/uL (130-400); RED CELL DISTRIBUTION WIDTH 12.7 % (11.0-15.5); WHITE BLOOD COUNT (AUTO) 8.2 K/uL (4.8-10.8)
[2020-06-10 05:31] LABS: ALBUMIN 2.1 g/dL (3.5-5.0); BILIRUBIN,TOTAL 0.5 mg/dL (0.2-1.0); MAGNESIUM 2.2 mg/dL (1.80-2.40); PHOSPHORUS 3.4 mg/dL (2.5-4.9); POTASSIUM 4.5 mmol/L (3.5-5.1); TOTAL PROTEIN, SERUM 6.2 g/dL (6.0-8.3)
[2020-06-10] MEDS: QUETIAPINE FUMARATE 25 MG TAB PO SCH ×3 (05:40→20:44)
[2020-06-10 08:08] VITALS: BP 108/70
[2020-06-10] MEDS: BENZONATATE 100 MG CAPSULE PO SCH ×4 (09:23→23:57)
[2020-06-10] MEDS: DEXAMETHASONE 4 MG TAB PO SCH (09:24)
[2020-06-10] MEDS: ZINC SULFATE 220 CAPSULE PO SCH (09:24)
[2020-06-10] MEDS: FAMOTIDINE 20MG TAB 20 MG TAB PO SCH ×2 (09:24→20:37)
[2020-06-10] MEDS: METOPROLOL TARTRATE 25 MG TAB PO SCH ×2 (09:24→20:46)
[2020-06-10] MEDS: CLOPIDOGREL BISULFATE 75 MG TAB PO SCH (09:24)
[2020-06-10] MEDS: ASCORBIC ACID 500 MG TAB PO SCH (09:24)
[2020-06-10] MEDS: ENOXAPARIN SODIUM 100 MG/1 ML SQ SCH ×2 (09:27→20:39)
[2020-06-10 12:15] VITALS: BP 111/43
[2020-06-10 16:46] VITALS: BP 126/70
[2020-06-10 19:00] VITALS: BP 100/65
[2020-06-10] MEDS: ATORVASTATIN CALCIUM 20 MG TABLET PO SCH (20:37)
[2020-06-11] VITALS (7 sets, daily range): BP systolic 104–124; BP diastolic 56–70
[2020-06-11] MEDS: GUAIFENESIN-DM 200/20 MG 10 ML PO SCH ×6 (03:51→23:26)
[2020-06-11] MEDS: QUETIAPINE FUMARATE 25 MG TAB PO SCH ×3 (06:22→21:12)
[2020-06-11] MEDS: BENZONATATE 100 MG CAPSULE PO SCH ×3 (08:11→23:26)
[2020-06-11] MEDS: DEXAMETHASONE 4 MG TAB PO SCH (08:11)
[2020-06-11] MEDS: FAMOTIDINE 20MG TAB 20 MG TAB PO SCH ×2 (08:12→21:12)
[2020-06-11] MEDS: METOPROLOL TARTRATE 25 MG TAB PO SCH ×2 (08:12→21:12)
[2020-06-11] MEDS: ZINC SULFATE 220 CAPSULE PO SCH (08:12)
[2020-06-11] MEDS: CLOPIDOGREL BISULFATE 75 MG TAB PO SCH (08:12)
[2020-06-11] MEDS: ASCORBIC ACID 500 MG TAB PO SCH (08:12)
[2020-06-11] MEDS: ENOXAPARIN SODIUM 100 MG/1 ML SQ SCH ×2 (08:13→21:12)
[2020-06-11] MEDS: ATORVASTATIN CALCIUM 20 MG TABLET PO SCH (21:12)
[2020-06-12 03:46] VITALS: BP 99/54
[2020-06-12 03:50] LABS: ABG BASE EXCESS 4.9 mmol/L (-2.0-3.0); ABG HCO3 29.8 mmol/L (21.0-28.0); ABG OXYGEN SATURATION 96.2 % (95.0-99.0); ABG PCO2 45 mmHg (35-48)
[2020-06-12] MEDS: GUAIFENESIN-DM 200/20 MG 10 ML PO SCH ×5 (04:35→20:24)
[2020-06-12 04:36] LABS: HEMATOCRIT 38.9 % (42-54); MEAN CORPUSCULAR HEMOGLOBIN 29.4 pg (27.0-33.0); MEAN CORPUSCULAR HGB CONC 32.9 g/dL (32.0-36.0); MEAN CORPUSCULAR VOLUME 89.4 fL (79-99); RED BLOOD CELL COUNT(AUTO) 4.35 MIL/uL (4.50-6.20); WHITE BLOOD COUNT (AUTO) 6.8 K/uL (4.8-10.8)
[2020-06-12 05:01] LABS: ALBUMIN 2.1 g/dL (3.5-5.0); BILIRUBIN,TOTAL 0.4 mg/dL (0.2-1.0); CREATININE 0.9 mg/dL (0.5-1.5); MAGNESIUM 2.2 mg/dL (1.80-2.40); PHOSPHORUS 3.1 mg/dL (2.5-4.9); POTASSIUM 3.9 mmol/L (3.5-5.1)
[2020-06-12] MEDS: QUETIAPINE FUMARATE 25 MG TAB PO SCH ×3 (06:00→22:20)
[2020-06-12 09:07] VITALS: BP 113/58
[2020-06-12] MEDS: FAMOTIDINE 20MG TAB 20 MG TAB PO SCH ×2 (10:29→20:24)
[2020-06-12] MEDS: METOPROLOL TARTRATE 25 MG TAB PO SCH ×3 (10:30→20:51)
[2020-06-12] MEDS: ASCORBIC ACID 500 MG TAB PO SCH (10:30)
[2020-06-12] MEDS: ZINC SULFATE 220 CAPSULE PO SCH (10:30)
[2020-06-12] MEDS: CLOPIDOGREL BISULFATE 75 MG TAB PO SCH (10:30)
[2020-06-12] MEDS: ENOXAPARIN SODIUM 100 MG/1 ML SQ SCH ×2 (10:31→20:24)
[2020-06-12] MEDS: BENZONATATE 100 MG CAPSULE PO SCH ×2 (10:32→16:00)
[2020-06-12 12:00] VITALS: BP 97/55
[2020-06-12 16:00] VITALS: BP 90/51
[2020-06-12 19:00] VITALS: BP 99/59
[2020-06-12] MEDS: ATORVASTATIN CALCIUM 20 MG TABLET PO SCH (20:24)
[2020-06-12 23:00] VITALS: BP 103/54
[2020-06-13 03:00] VITALS: BP 106/62
[2020-06-13] MEDS: GUAIFENESIN-DM 200/20 MG 10 ML PO SCH ×5 (04:30→17:15)
[2020-06-13] MEDS: QUETIAPINE FUMARATE 25 MG TAB PO SCH ×2 (05:15→13:34)
--- NOTE | 2020-06-13 05:30 | NUR ---
LABS Pt refused am labs and ABG
[2020-06-13 07:00] VITALS: BP 109/59
[2020-06-13] MEDS: BENZONATATE 100 MG CAPSULE PO SCH ×3 (09:01→17:15)
[2020-06-13] MEDS: ASCORBIC ACID 500 MG TAB PO SCH (09:01)
[2020-06-13] MEDS: FAMOTIDINE 20MG TAB 20 MG TAB PO SCH (09:01)
[2020-06-13] MEDS: ZINC SULFATE 220 CAPSULE PO SCH (09:01)
[2020-06-13] MEDS: CLOPIDOGREL BISULFATE 75 MG TAB PO SCH (09:01)
[2020-06-13] MEDS: METOPROLOL TARTRATE 25 MG TAB PO SCH (09:01)
[2020-06-13] MEDS: ENOXAPARIN SODIUM 100 MG/1 ML SQ SCH (09:01)
[2020-06-13 11:00] VITALS: BP 98/51
[2020-06-13 16:00] VITALS: BP 107/68
--- NOTE | 2020-06-13 17:17 | NUR ---
Patient cleared by primary team to be discharged home. Pt instructed to follow up with PCP and [facility] in forthcoming weeks. Pt sent home with Home O2 and verbalized understanding of DC information
== END 2020-06-13 17:40 | disposition home or self-care (01) | DRG 177 ==
LOC: EDH 01:58 → EDHIP 04:15 → 4BH 06:03 → 2DH 06-09 14:32
PROVIDERS: ADMIT Internal Medicine Critical Care Medicine; ATTEND Internal Medicine Critical Care Medicine
PROC: XW13325 Transfusion of Convalescent Plasma (Nonautologous) into Peripheral Vein, Percutaneous Approach, New Technology Group 5 (ICD-10-PCS; principal; 2020-05-28)
PROC: XW033E5 Introduction of Remdesivir Anti-infective into Peripheral Vein, Percutaneous Approach, New Technology Group 5 (ICD-10-PCS; 2020-05-29)
DX: U07.1 COVID-19 (principal); J12.89 Other viral pneumonia; J96.01 Acute respiratory failure with hypoxia; M62.82 Rhabdomyolysis; E66.01 Morbid (severe) obesity due to excess calories; G47.33 Obstructive sleep apnea (adult) (pediatric); I10 Essential (primary) hypertension; I35.1 Nonrheumatic aortic (valve) insufficiency; F41.9 Anxiety disorder, unspecified; Z66 Do not resuscitate; Z79.01 Long term (current) use of anticoagulants; Z79.02 Long term (current) use of antithrombotics/antiplatelets; Z82.49 Family history of ischemic heart disease and other diseases of the circulatory system; Z86.73 Personal history of transient ischemic attack (TIA), and cerebral infarction without residual deficits; Z68.31 Body mass index [BMI] 31.0-31.9, adult
CPT/HCPCS: 36415; 36430; 36600; 71045; 71275; 80048; 80053; 80076; 81001; 82550; 82728; 82803; 83036; 83605; 83615; 83735; 83874; 83880; 84100; 84145; 84484; 85025; 85027; 85378; 85610; 85730; 86140; 86850; 86900; 86901; 86927; 87040; 87088; 87426; 93005; 94760; 97039; 99291; A4606; G0378; J0456; J0696; J1100; J1650; J1940; J7050; J7120; J8540; Q9967